=== PATIENT | male | born 1960 | race Caucasian/White ===

== ENCOUNTER 2020-06-03 10:50 | Outpatient (CLI) | payer OTHER, SELFPAY ==
[2020-06-03 11:56] LABS: Alanine Aminotransferase 50 U/L (4-50); Albumin Level 4.4 g/dL (3.5-5.1); Alkaline Phosphatase 75 U/L (38-126); Anion Gap 8 mmol/L (8-16); Aspartate Amino Transferase 43 U/L (17-59); Bilirubin,Total 0.8 mg/dL (0.2-1.3); Blood Urea Nitrogen 10 mg/dL (9-20); Calcium 9.5 mg/dL (8.4-10.2); Carbon Dioxide 29 mmol/L (22-30); Chloride 98 mmol/L (98-107); Cholesterol 214 mg/dL (0-200); Estimated Glomerular Filt Rate > 60; Glucose 120 mg/dL (75-110); HDL Direct 60 mg/dL; Potassium 4.1 mmol/L (3.4-5.0); Sodium 135 mmol/L (137-145); Triglycerides 138 mg/dL (<150)
[2020-06-03 12:09] LABS: LDL Cholesterol Direct 139 mg/dL
[2020-06-03 12:37] LABS: Free T4 Free Thyroxine 0.69 ng/mL (0.78-2.19)
== END 2020-06-03 10:51 | disposition home or self-care (01) ==
LOC: ANHLAB 10:53
PROVIDERS: PCP Internal Medicine; Visit Provider Nurse Practitioner
DX: E78.2 Mixed hyperlipidemia (principal); I10 Essential (primary) hypertension; Z79.899 Other long term (current) drug therapy; Z12.5 Encounter for screening for malignant neoplasm of prostate
CPT/HCPCS: 36415; 80053; 80061; 84153; 84439; 84443

== ENCOUNTER 2020-08-24 02:05 | Outpatient (CLI) | payer OTHER, SELFPAY ==
[2020-08-24 20:09] LABS: SARS-CoV-2 RNA PCR Negative
== END 2020-08-24 02:06 | disposition home or self-care (01) ==
LOC: ANHCOVIDDT 02:06
PROVIDERS: PCP Internal Medicine; Visit Provider Surgery
DX: Z01.812 Encounter for preprocedural laboratory examination (principal); Z20.822 Contact with and (suspected) exposure to COVID-19
CPT/HCPCS: C9803; U0003

== ENCOUNTER 2020-08-26 15:19 | Outpatient (CLI) | payer OTHER, SELFPAY ==
--- NOTE | 2020-08-26 15:20 | ECG_ITS ---
Measurements Intervals [place] Rate: 90 P: 51 [place]: 144 QRS: 17 QRSD: 100 T: 42 QT: 364 QTc: 447 Interpretive Statements SINUS RHYTHM POSSIBLE LEFT ATRIAL ENLARGEMENT INCOMPLETE RIGHT BUNDLE BRANCH BLOCK BASELINE ARTIFACT- V4 BORDERLINE ECG Electronically Signed On 08-26-2020 15:52:39 [employer] by Pollo Horton D.O.
== END 2020-08-26 15:20 | disposition home or self-care (01) ==
PROVIDERS: PCP Internal Medicine; Visit Provider Surgery
DX: Z01.818 Encounter for other preprocedural examination (principal); I10 Essential (primary) hypertension
CPT/HCPCS: 93005

== ENCOUNTER 2020-08-28 01:43 | Day surgery (SDC) | payer OTHER, SELFPAY ==
[2020-08-21 13:09] VITALS: BMI 28.6
--- NOTE | 2020-08-27 10:13 | WPDANESEPPF ---
Anes - Initial Pre Proc Eval Procedure: Operation Date: 08/28/20 12:00 Proposed Procedures p Excision Subcutaneous Mass Posterior Right Upper Arm - Lamont Guzman MD Date/Time: 08/27/20 10:13 Surgeon: Lamont Guzman MD Pre Op Diagnosis: Epidermal Cyst Patient Data Age: 60 Gender: M Height: 1.85 m Weight: 98.6 kg Allergies Allergy/AdvReac Type Severity Reaction Status Date / Time No Known Allergies Allergy Verified 08/28/20 10:04 Home Medications Medication Instructions Recorded Confirmed Type adalimumab 40 mg/0.8 mL 40 mg SUB-Q .COMPLEX 08/18/19 08/28/20 History subcutaneous syringe kit triamterene 37.5 See Rx Instructions .ROUTE 08/07/20 08/28/20 Rx mg-hydrochlorothiazide 25 mg .COMPLEX #90 cap capsule amlodipine 10 mg tablet 10 mg PO DAILY #90 tablet 08/08/20 08/28/20 Rx losartan 100 mg tablet 100 mg PO DAILY #90 tablet 08/08/20 08/28/20 Rx Patient hx anesthesia problems: none Family hx anesthesia problems: none PMFSH Past Medical History Medical History BPH NOS w/o ur obs/LUTS Colitis Essential (primary) hypertension Hypertension Migraine Mixed hyperlipidemia Mononeuritis leg Rheumatoid arthritis Surgical History Surgical History H/O colonoscopy History of appendectomy History of thumb surgery Family History Family History Father Hypertension Acute myocardial infarction, Onset Age: 67 Patient's father is Mother Family history of rheumatoid arthritis Family history of arthritis Sibling Patient's sister is in good health Patient's brother is in good health Grandparent Diabetes mellitus Lung cancer Social History Social History (Updated 08/28/20 @ 10:30 by Josr Chamberlain DO) Smoking packs per day: 0.75 Smoking cigarettes per day: 15.0 Years smoked: 5 Smoking pack-years: 3.75 Smoking status: Current every day smoker Tobacco type: cigarettes Smoking end date: 08/23/89 Alcohol intake: current Alcohol use details: 3-4 beers/daily Living arrangements: with family 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 care concerns: No Anes - Eval Final PreProcedure Day of Procedure 08/27/20 10:13 Patient weight: overweight Heart: regular rate and rhythm Lungs: clear to auscultation and normal air movement Airway: Mallampati scale class II Neurological: alert and oriented Last oral intake: >/= 8 hours ASA classification: III Emergent: no Anesthetic plan: proceed Anesthesia type and monitoring: general GIVS and standard monitoring Informed Consent: The patient's anesthetic plan and its attendant risks and benefits were discussed with the patient/family/POA. Questions were solicited and answers provided to the satisfaction of the patient/family/POA.
[2020-08-28] MEDS: LACTATED RINGERS 1,000 ML 30 ML IV CONT (10:34)
[2020-08-28 10:56] VITALS: BP 125/72; PULSE 98; RESP 16; TEMP 36.4; O2SAT 98
--- NOTE | 2020-08-28 11:44 | WPDHPUPDATE1 ---
History and Physical Update Update Date/Time: 08/28/20 11:44 History and Physical has been reviewed, including an updated exam of the patient. There are NO changes in the patient's condition. Risks, benefits, and alternatives have been discussed and questions answered. Patient agrees to proceed with procedure.
[2020-08-28] MEDS: LIDO 2%/EPINEPHRINE 1:100,000 20 ML VIAL 14 ML INFILTRATE (12:26)
--- NOTE | 2020-08-28 12:57 | PM.PROC ---
Procedure Note - Detailed Date of procedure: 08/30/20 Pre-op diagnosis: Enlarging subcutaneous mass Rt.upper posterior arm Post-op diagnosis: same Procedure performed: Excision of subcutaneous mass lesion right posterior upper arm Description of procedure: The patient was placed in the supine position and then a bump placed under his back so he was rolled somewhat toward the left. After a surgical time out confirming patient and procedure the patient was prepped and draped in the usual sterile fashion. Local anesthetic was administered subcutaneously in the propsed area of incision and then further out around the lesin in the subcutaneous tissue. An elliptical incision was made purposely excising sone of the skin overlying the center of the the lesion which was subcutaneous but pushing up the skin a little bit in 2 areas. I then completed the excision by taking a thin margin circumferentially. I dissected down to the deep subcutaneous tissues and then completely excised the lesion. While doing this we did enter the cyst and there was some whitish mucoid material that came out of the cyst. This was suctioned away immediately. Bleeding was controlled with electrocautery. Prior to wound closure we irrigated the wound after removing the apparent epidermal CIS and measuring the specimen. Irrigation was completed with approximately 40 cc of sterile saline. The lesion measured 4.0 x 2.0 x 1.8 cm after excision. Wound appeared very clean and we therefore proceeded to closure. The wound was closed in two layers. First with purple dyed 2-0 Vicryl deep dermal simple sutures at 3 separate sites along the incision and then several interrupted sutures of un-dyed 3-0 Vicryl at each end and between the other sutures to approximate the skin edges. A 4-0 undyed Monocryl running subcuticular closure was completed. Surgical glue applied as dressing. Patient tolerated this well. Implants: none Anesthesia: local (2% xylocaine with epinephrine) Surgeon: Lamont Guzman MD Estimated blood loss (mL): 2 Drains: No Complications: No immediate complications Condition: stable Disposition: same day Findings: Two apparently adjacent epidermal cysts in the subcutaneous tissues of the right posterior upper arm.
[2020-08-28 13:01] VITALS: BP 111/76; PULSE 73; RESP 14
[2020-08-28 13:30] VITALS: BP 98/74; PULSE 63; RESP 14
[2020-08-28 13:46] VITALS: BP 97/67; PULSE 61; RESP 16
== END 2020-08-28 14:20 | disposition home or self-care (01) ==
PROVIDERS: PCP Internal Medicine; Visit Provider Surgery
PROC: (CPT 23071; principal; 2020-08-28 12:00)
DX: L72.0 Epidermal cyst (principal); N40.0 Benign prostatic hyperplasia without lower urinary tract symptoms; I10 Essential (primary) hypertension; M06.9 Rheumatoid arthritis, unspecified; E78.2 Mixed hyperlipidemia; F17.210 Nicotine dependence, cigarettes, uncomplicated
CPT/HCPCS: 23071; 88304; 93005; C9803; J2250; J2370; J2704; J3010; J7120; U0003

== ENCOUNTER 2020-11-22 08:49 | Outpatient (CLI) | payer OTHER, SELFPAY ==
[2020-11-22 09:16] LABS: Alanine Aminotransferase 63 U/L (4-50); Albumin Level 4.5 g/dL (3.5-5.1); Alkaline Phosphatase 77 U/L (38-126); Anion Gap 11 mmol/L (8-16); Aspartate Amino Transferase 50 U/L (17-59); Bilirubin,Total 0.4 mg/dL (0.2-1.3); Blood Urea Nitrogen 12 mg/dL (9-20); Calcium 9.2 mg/dL (8.4-10.2); Carbon Dioxide 25 mmol/L (22-30); Chloride 102 mmol/L (98-107); Cholesterol 196 mg/dL (0-200); Estimated Glomerular Filt Rate > 60; Glucose 108 mg/dL (75-110); HDL Direct 49 mg/dL; Hemoglobin A1C 5.1 % (<5.7); Potassium 3.9 mmol/L (3.4-5.0); Sodium 138 mmol/L (137-145); Triglycerides 204 mg/dL (<150)
[2020-11-22 09:27] LABS: LDL Cholesterol Direct 98 mg/dL
== END 2020-11-22 08:50 | disposition home or self-care (01) ==
PROVIDERS: PCP Internal Medicine; Visit Provider Nurse Practitioner
DX: E78.5 Hyperlipidemia, unspecified (principal); R73.9 Hyperglycemia, unspecified
CPT/HCPCS: 36415; 80053; 80061; 83036

== ENCOUNTER 2021-08-07 08:57 | Outpatient (CLI) | payer OTHER, SELFPAY ==
[2021-08-07 09:38] LABS: Alanine Aminotransferase 74 U/L (4-50); Albumin Level 4.5 g/dL (3.5-5.1); Alkaline Phosphatase 67 U/L (38-126); Anion Gap 9 mmol/L (8-16); Aspartate Amino Transferase 58 U/L (17-59); Bilirubin,Total 0.5 mg/dL (0.2-1.3); Blood Urea Nitrogen 9 mg/dL (9-20); Calcium 9.5 mg/dL (8.4-10.2); Carbon Dioxide 24 mmol/L (22-30); Chloride 101 mmol/L (98-107); Cholesterol 198 mg/dL (0-200); Estimated Glomerular Filt Rate > 60; Glucose 121 mg/dL (65-110); HDL Direct 42 mg/dL; Potassium 3.5 mmol/L (3.4-5.0); Sodium 134 mmol/L (137-145); Triglycerides 182 mg/dL (<150)
[2021-08-07 09:49] LABS: LDL Cholesterol Direct 126 mg/dL
[2021-08-07 10:07] LABS: Prostate Specific Antigen 1.4 ng/mL (< OR = 4.0)
== END 2021-08-07 08:58 | disposition home or self-care (01) ==
PROVIDERS: PCP Internal Medicine; Visit Provider Internal Medicine
DX: E78.2 Mixed hyperlipidemia (principal); I10 Essential (primary) hypertension; Z12.5 Encounter for screening for malignant neoplasm of prostate; E78.5 Hyperlipidemia, unspecified
CPT/HCPCS: 36415; 80053; 80061; 84153; G0103

== ENCOUNTER 2022-02-16 09:09 | Outpatient (CLI) | payer OTHER, SELFPAY ==
[2022-02-16 09:43] LABS: Alanine Aminotransferase 85 U/L (6-50); Albumin Level 4.6 g/dL (3.5-5.1); Alkaline Phosphatase 70 U/L (38-126); Anion Gap 8 mmol/L (8-16); Aspartate Amino Transferase 67 U/L (17-59); Bilirubin,Total 0.6 mg/dL (0.2-1.3); Blood Urea Nitrogen 13 mg/dL (9-20); Calcium 9.2 mg/dL (8.4-10.2); Carbon Dioxide 27 mmol/L (22-30); Chloride 102 mmol/L (98-107); Cholesterol 187 mg/dL (0-200); Estimated Glomerular Filt Rate > 60; Glucose 110 mg/dL (65-110); HDL Direct 40 mg/dL; Potassium 3.9 mmol/L (3.4-5.0); Sodium 137 mmol/L (137-145); Triglycerides 115 mg/dL (<150)
[2022-02-16 09:48] LABS: Hemoglobin A1C 5.9 % (<5.7)
[2022-02-16 09:54] LABS: LDL Cholesterol Direct 112 mg/dL
== END 2022-02-16 09:10 | disposition home or self-care (01) ==
LOC: ANHLAB 09:11
PROVIDERS: PCP Internal Medicine; Visit Provider Internal Medicine
DX: E78.5 Hyperlipidemia, unspecified (principal); R73.9 Hyperglycemia, unspecified; I10 Essential (primary) hypertension; Z79.899 Other long term (current) drug therapy
CPT/HCPCS: 36415; 80053; 80061; 83036

== ENCOUNTER 2022-03-12 09:03 | Outpatient (CLI) | payer OTHER, SELFPAY ==
--- NOTE | ~2022-03-12 | US_ITS ---
US abdomen limited INDICATION: Abnormal lab studies. PROCEDURE: Realtime right upper abdominal ultrasound. COMPARISON: No prior studies for comparison. FINDINGS: The pancreas is normal without focal mass or pancreatic ductal dilation. There are multipl e liver cysts, largest measuring 4.5 cm. No solid liver masses. There is normal directional flow in the portal vein. The gallbladder is normal without stones, gallbladder wall thickening or pericholecystic fluid. Comm on bile duct measures 5 mm. No sonographic Drake's sign. IMPRESSION: 1: Liver cysts. Reviewed, dictated and finalized at location [facility]. IMPRESSION: 1: Liver cysts.
== END 2022-03-12 09:04 | disposition home or self-care (01) ==
PROVIDERS: PCP Internal Medicine; Visit Provider Nurse Practitioner
DX: R79.89 Other specified abnormal findings of blood chemistry (principal); K76.89 Other specified diseases of liver
CPT/HCPCS: 76705

== ENCOUNTER 2022-08-28 08:49 | Outpatient (CLI) | payer BC, SELFPAY ==
[2022-08-28 09:47] LABS: Alanine Aminotransferase 187 U/L (6-50); Albumin Level 4.4 g/dL (3.5-5.1); Alkaline Phosphatase 58 U/L (38-126); Anion Gap 9 mmol/L (8-16); Aspartate Amino Transferase 101 U/L (17-59); Bilirubin,Total 0.5 mg/dL (0.2-1.3); Blood Urea Nitrogen 19 mg/dL (9-20); Calcium 9.2 mg/dL (8.4-10.2); Carbon Dioxide 28 mmol/L (22-30); Chloride 103 mmol/L (98-107); Cholesterol 204 mg/dL (0-200); Estimated Glomerular Filt Rate > 60; Glucose 120 mg/dL (65-110); HDL Direct 40 mg/dL; Potassium 4.2 mmol/L (3.4-5.0); Sodium 140 mmol/L (137-145); Triglycerides 194 mg/dL (<150)
[2022-08-28 09:58] LABS: Hemoglobin A1C 5.7 % (<5.7); LDL Cholesterol Direct 120 mg/dL
== END 2022-08-28 08:50 | disposition home or self-care (01) ==
PROVIDERS: PCP Internal Medicine; Visit Provider Nurse Practitioner
DX: R73.03 Prediabetes (principal); E78.5 Hyperlipidemia, unspecified; Z79.899 Other long term (current) drug therapy
CPT/HCPCS: 36415; 80053; 80061; 83036

== ENCOUNTER 2022-09-09 10:46 | Outpatient (CLI) | payer BC, SELFPAY ==
[2022-09-09 12:27] LABS: Hepatitis B Surface Antigen Negative (Negative)
[2022-09-09 12:33] LABS: HAV RESULT Negative (Negative); Hepatitis B Core IgM Result Negative (Negative)
[2022-09-09 12:45] LABS: Hepatitis C Virus Antibody Negative (Negative)
== END 2022-09-09 10:47 | disposition home or self-care (01) ==
LOC: ANHLAB 10:46
PROVIDERS: PCP Internal Medicine; Visit Provider Nurse Practitioner
DX: R79.89 Other specified abnormal findings of blood chemistry (principal)
CPT/HCPCS: 36415; 80074

== ENCOUNTER 2022-09-23 10:53 | Outpatient (CLI) | payer BC, SELFPAY ==
[2022-09-23 11:56] LABS: Alanine Aminotransferase 123 U/L (6-50); Alkaline Phosphatase 68 U/L (38-126); Aspartate Amino Transferase 73 U/L (17-59); Bilirubin,Total 0.8 mg/dL (0.2-1.3); Iron 144 ug/dL (49-181)
[2022-09-23 12:05] LABS: Percent Iron Saturation 38 % (20-50)
[2022-09-23 12:17] LABS: INR 1.1; Prothrombin Time 13.4 Seconds (11.1-14.7)
[2022-09-23 15:34] LABS: Hepatitis B Surface Anti Res Indeterminate
[2022-09-26 10:24] LABS: Mitochondrial (M2) Ab (IgG) <=20.0 U (<=20.0)
[2022-09-26 14:14] LABS: GGT 66 U/L (3-70)
[2022-09-26 21:01] LABS: Actin Antibody (IgG) <20 U (<20)
[2022-09-27 13:24] LABS: LKM 1 Antibody <=20.0 U (<=20.0)
[2022-09-28 11:29] LABS: Hepatitis A Antibody Total Reactive (Nonreactive)
[2022-09-28 11:40] LABS: Anti Nuclear Antibody Pattern Nuclear, Speckled
[2022-09-28 14:58] LABS: Ceruloplasmin 28 mg/dL (18-36)
[2022-09-28 17:51] LABS: Alpha Fetoprotein Tumor Marker 3.9 ng/mL (<6.1)
[2022-09-29 18:06] LABS: ALT 93 U/L (9-46); Alpha-2-Macroglobulin 265 mg/dL (106-279); Apolipoprotein A1 131 mg/dL (94-176); Fibrosis Score 0.48; Fibrosis Stage F1-F2; GGT 71 U/L (3-70); Haptoglobin 203 mg/dL (43-212); Necroinflammat Act Grade A2-A3; Total Bilirubin 0.5 mg/dL (0.2-1.2)
== END 2022-09-23 10:54 | disposition home or self-care (01) ==
PROVIDERS: PCP Internal Medicine; Visit Provider Nurse Practitioner Family
DX: R79.89 Other specified abnormal findings of blood chemistry (principal)
CPT/HCPCS: 36415; 80076; 81596; 82105; 82390; 82728; 82977; 83516; 83520; 83540; 83550; 85610; 86038; 86039; 86376; 86706; 86708

== ENCOUNTER 2022-10-19 07:59 | Outpatient (CLI) | payer BC, SELFPAY ==
--- NOTE | ~2022-10-19 | US_ITS ---
Limited Abdominal Sonogram: Real-time sonographic imaging of the right upper quadrant was performed. Clinical History: Abnormal blood chemistry Findings: The liver appears normal with no evidence of solid mass lesion or bile duct dilatation. Mu ltiple hepatic lobe cysts are present, largest measuring 4.3 cm in diameter in the left hepatic lobe. Main portal vein demonstrates normal direction of flow. The gallbladder is well distended, and appea rs normal with no evidence of gallstone or wall thickening. The common bile duct measures 3 mm. The visualized pancreas, aorta, and IVC are unremarkable. Impression: Multiple hepatic cysts, as noted above. Reviewed, dictated and finalized at [facility]. [employer] Impression: Multiple hepatic cysts, as noted above.
== END 2022-10-19 08:00 | disposition home or self-care (01) ==
PROVIDERS: PCP Internal Medicine; Visit Provider Nurse Practitioner Family
DX: R79.89 Other specified abnormal findings of blood chemistry (principal); K76.89 Other specified diseases of liver
CPT/HCPCS: 76705

== ENCOUNTER 2023-04-23 08:36 | Outpatient (CLI) | payer BC, SELFPAY ==
[2023-04-23 09:42] LABS: Hematocrit 44.9 % (42.0-52.0); Hemoglobin 15.4 g/dL (14.0-18.0); Mean Corpuscular HGB Conc 34.3 g/dl (32-36); Mean Corpuscular Hemoglobin 33.6 pg (26-34); Mean Platelet Volume 9.4 fl (7.4-10.4); Platelet Count Result 257 k/mm3 (150-375); Red Blood Count 4.58 M/mm3 (4.6-6.20); Red Cell Distribution Width 12.7 % (11.5-14.5); White Blood Count 7.2 K/mm3 (4.5-10.0)
[2023-04-23 09:53] LABS: Prothrombin Time 13.7 Seconds (11.1-14.7)
[2023-04-23 09:54] LABS: Alanine Aminotransferase 30 U/L (6-50); Albumin Level 4.3 g/dL (3.5-5.1); Alkaline Phosphatase 53 U/L (38-126); Anion Gap 8 mmol/L (8-16); Aspartate Amino Transferase 28 U/L (17-59); Bilirubin,Total 0.8 mg/dL (0.2-1.3); Blood Urea Nitrogen 11 mg/dL (9-20); Calcium 9.3 mg/dL (8.4-10.2); Carbon Dioxide 31 mmol/L (22-30); Chloride 97 mmol/L (98-107); Estimated Glomerular Filt Rate > 60; Glucose 131 mg/dL (65-110); Potassium 3.7 mmol/L (3.4-5.0); Sodium 136 mmol/L (137-145)
[2023-04-23 09:56] LABS: Cholesterol 194 mg/dL (0-200); HDL Direct 36 mg/dL; Triglycerides 159 mg/dL (<150)
[2023-04-23 10:08] LABS: LDL Cholesterol Direct 118 mg/dL
[2023-04-23 10:27] LABS: Prostate Specific Antigen 0.6 ng/mL (< OR = 4.0)
== END 2023-04-23 08:37 | disposition home or self-care (01) ==
PROVIDERS: PCP Nurse Practitioner; Referring Provider Nurse Practitioner Family; Visit Provider Nurse Practitioner
DX: R79.89 Other specified abnormal findings of blood chemistry (principal); Z12.5 Encounter for screening for malignant neoplasm of prostate; E78.5 Hyperlipidemia, unspecified
CPT/HCPCS: 36415; 80053; 80061; 84153; 85027; 85610; G0103

== ENCOUNTER 2023-08-13 01:51 | Day surgery (SDC) | payer BC, SELFPAY ==
[2023-07-27 13:56] VITALS: BMI 29.6
--- NOTE | 2023-08-11 08:43 | SUR.PREOP ---
Patient called regarding upcoming procedure. Reviewed preop instructions, appointment times, and procedure prep.
--- NOTE | 2023-08-12 09:31 | WPDANESEPPF ---
Anes - Initial Pre Proc Eval Procedure: Operation Date: 08/13/23 08:00 Proposed Procedures p Screening Colonoscopy - Octavio Sampson MD Date/Time: 08/12/23 09:31 Surgeon: Octavio Sampson MD Pre Op Diagnosis: neoplasm screening Patient Data Age: 63 Gender: M Height: 1.85 m Weight: 102 kg Allergies Allergy/AdvReac Type Severity Reaction Status Date / Time No Known Allergies Allergy Verified 08/13/23 06:40 Home Medications Medication Instructions Recorded Confirmed Type adalimumab 40 mg/0.8 mL 40 mg subcut .COMPLEX 08/18/19 07/27/23 History subcutaneous syringe kit (Humira) amlodipine 10 mg tablet 10 mg PO DAILY #90 tabs 08/09/23 08/13/23 Rx losartan 100 mg tablet 100 mg PO DAILY #90 tabs 08/09/23 08/13/23 Rx triamterene 37.5 See Rx Instructions .Route 08/09/23 08/13/23 Rx mg-hydrochlorothiazide 25 mg .COMPLEX #90 caps capsule Patient hx anesthesia problems: none Family hx anesthesia problems: none Results Review: All pre-operative results and documents have been reviewed as part of the pre-operative evaluation. [facility] Past Medical History Medical History (Updated 08/12/23 @ 09:31 by Josr Chamberlain DO) BPH NOS w/o ur obs/LUTS Colitis Encounter for screening colonoscopy Hepatic cyst Hypertension Migraine Mononeuritis leg Rheumatoid arthritis Seizure none since teenager Surgical History Surgical History H/O colonoscopy History of appendectomy History of thumb surgery Mass of right upper extremity Family History Family History Father Hypertension Acute myocardial infarction, Onset Age: 67 Patient's father is Mother Family history of rheumatoid arthritis Family history of arthritis Sibling Patient's sister is in good health Patient's brother is in good health Grandparent Diabetes mellitus Lung cancer Social History Social History Smoking packs per day: 0.1 Smoking cigarettes per day: 2.0 Years smoked: 10 Smoking pack-years: 1.00 Smoking status: Former smoker Tobacco type: cigarettes and e-cigarettes/vaping Smoking end date: 08/23/89 Additional smoking assessment comments: Vaping Alcohol intake: current Drinks per week: 3 Substance use: never Substance use type: does not use Lack of Transportation: No Lack of Food: Never True Current Housing: I Have Housing Concerned About Future Housing: No Difficulty Paying Gas/Electric Bills: No Difficulty Paying for Meds: No Currently Unemployed: No Education: Master's Degree or Higher Difficulty w/ Childcare or Family Care: No Living arrangements: with family Occupation/Education: 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 Informed Consent: The patient's anesthetic plan and its attendant risks and benefits were discussed with the patient/family/POA. Questions were solicited and answers provided to the satisfaction of the patient/family/POA.
[2023-08-13 06:42] VITALS: BP 126/83; PULSE 87; RESP 16; TEMP 36.3; O2SAT 98
[2023-08-13] MEDS: LACTATED RINGERS 1,000 ML 150 ML IV CONT (06:51)
--- NOTE | 2023-08-13 07:13 | PM.HPGS ---
History of Present Illness History of Present Illness Consent: Risks, benefits, and alternatives have been discussed and questions answered. Patient agrees to proceed with procedure. Chief complaint: neoplasm screening Narrative: Bhupendra Jones is a 63 year old male Presents for screening colonoscopy. Patient's current weight appetite and bowel movements are normal. Patient denies abdominal pain. He has had no bleeding. Family history noncontributory. He does report that his had colon cancer and recovered after surgery. Previous colonoscopy this patient had 10 years ago was unremarkable. Review of Systems Review of Systems: Review of systems noncontributory. [facility] Past Medical History Medical History (Updated 08/12/23 @ 09:31 by Josr Chamberlain, ) BPH NOS w/o ur obs/LUTS Colitis Encounter for screening colonoscopy Hepatic cyst Hypertension Migraine Mononeuritis leg Rheumatoid arthritis Seizure none since teenager Surgical History Surgical History H/O colonoscopy History of appendectomy History of thumb surgery Mass of right upper extremity Family History Family History Father Hypertension Acute myocardial infarction, Onset Age: 67 Patient's father is Mother Family history of rheumatoid arthritis Family history of arthritis Sibling Patient's sister is in good health Patient's brother is in good health Grandparent Diabetes mellitus Lung cancer Social History Social History Smoking packs per day: 0.1 Smoking cigarettes per day: 2.0 Years smoked: 10 Smoking pack-years: 1.00 Smoking status: Former smoker Tobacco type: cigarettes and e-cigarettes/vaping Smoking end date: 08/23/89 Additional smoking assessment comments: Vaping Alcohol intake: current Drinks per week: 3 Substance use: never Substance use type: does not use Lack of Transportation: No Lack of Food: Never True Current Housing: I Have Housing Concerned About Future Housing: No Difficulty Paying Gas/Electric Bills: No Difficulty Paying for Meds: No Currently Unemployed: No Education: Master's Degree or Higher Difficulty w/ Childcare or Family Care: No Living arrangements: with family Occupation/Education: occupation 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 care concerns: No Meds Home Medications and Allergies Home Medications Medication Instructions Recorded Confirmed Type adalimumab 40 mg/0.8 mL 40 mg subcut .COMPLEX 08/18/19 07/27/23 History subcutaneous syringe kit (Humira) amlodipine 10 mg tablet 10 mg PO DAILY #90 tabs 08/09/23 08/13/23 Rx losartan 100 mg tablet 100 mg PO DAILY #90 tabs 08/09/23 08/13/23 Rx triamterene 37.5 See Rx Instructions .Route 08/09/23 08/13/23 Rx mg-hydrochlorothiazide 25 mg .COMPLEX #90 caps capsule Allergies Allergy/AdvReac Type Severity Reaction Status Date / Time No Known Allergies Allergy Verified 08/13/23 06:40 Vital Signs Vital Signs - 24 hr 08/13/23 06:42 Temperature 97.4 F L Pulse Rate 87 Respiratory Rate 16 Blood Pressure 126/83 Pulse Oximetry 98 Oxygen Delivery Room Air Exam Narrative: Physical exam reveals patient to be alert. Vital signs stable. HEENT exam is unremarkable. Patient is anicteric. Lungs are clear to auscultation and percussion. Heart is without murmur or extra sounds. Abdomen bowel sounds are present soft nontender with no organomegaly. Digital external rectal exam normal. Assessment and Plan Assessment and plan (1) Encounter for screening colonoscopy: Code(s): Z12.11 - Encounter for screening for malignant neoplasm of colon Status: Acute Assessment and Plan: Patient presents today for screening colonoscopy. He appears to be a
[2023-08-13 08:05] VITALS: BP 132/83; PULSE 75; RESP 16; O2SAT 96
[2023-08-13 08:15] VITALS: BP 121/89; PULSE 74; RESP 19; O2SAT 100
[2023-08-13 08:25] VITALS: BP 125/88; PULSE 69; RESP 17; O2SAT 100
== END 2023-08-13 08:34 | disposition home or self-care (01) ==
PROVIDERS: PCP Nurse Practitioner; Visit Provider Internal Medicine Gastroenterology
PROC: 0DJD8ZZ Inspection of Lower Intestinal Tract, Via Natural or Artificial Opening Endoscopic (ICD-10-PCS; CPT 45378; principal; 2023-08-13 08:00)
DX: Z12.11 Encounter for screening for malignant neoplasm of colon (principal); K64.8 Other hemorrhoids; K57.30 Diverticulosis of large intestine without perforation or abscess without bleeding; I10 Essential (primary) hypertension; M06.9 Rheumatoid arthritis, unspecified; F17.290 Nicotine dependence, other tobacco product, uncomplicated; Z79.620 Long term (current) use of immunosuppressive biologic
CPT/HCPCS: 45378; J2704; J7120

== ENCOUNTER 2024-05-15 08:39 | Outpatient (CLI) | payer BC, SELFPAY ==
[2024-05-15 08:53] LABS: Hematocrit 45.3 % (42.0-52.0); Hemoglobin 16.1 g/dL (14.0-18.0); Mean Corpuscular HGB Conc 35.5 g/dl (32-36); Mean Corpuscular Hemoglobin 35.6 pg (26-34); Mean Corpuscular Volume 100.2 fl (80-100); Mean Platelet Volume 9.2 fl (7.4-10.4); Platelet Count Result 263 k/mm3 (150-375); Red Blood Count 4.52 M/mm3 (4.6-6.20); Red Cell Distribution Width 12.3 % (11.5-14.5); White Blood Count 6.5 K/mm3 (4.5-10.0)
[2024-05-15 09:07] LABS: Alanine Aminotransferase 82 U/L (6-50); Albumin Level 4.7 g/dL (3.5-5.1); Alkaline Phosphatase 39 U/L (38-126); Anion Gap 10 mmol/L (4-12); Aspartate Amino Transferase 59 U/L (17-59); Blood Urea Nitrogen 17 mg/dL (9-20); Calcium 9.4 mg/dL (8.4-10.2); Carbon Dioxide 28 mmol/L (22-30); Chloride 95 mmol/L (98-107); Cholesterol 175 mg/dL (0-200); Estimated Glomerular Filt Rate > 60; Glucose 113 mg/dL (65-110); HDL Direct 29 mg/dL; Potassium 3.8 mmol/L (3.4-5.0); Sodium 133 mmol/L (137-145); Triglycerides 130 mg/dL (<150)
[2024-05-15 09:15] LABS: Hemoglobin A1C 5.8 % (<5.7); LDL Cholesterol Direct 117 mg/dL
[2024-05-15 09:35] LABS: Prostate Specific Antigen 0.7 ng/mL (< OR = 4.0)
== END 2024-05-15 08:40 | disposition home or self-care (01) ==
PROVIDERS: PCP Nurse Practitioner; Visit Provider Nurse Practitioner
DX: Z12.5 Encounter for screening for malignant neoplasm of prostate (principal); E78.5 Hyperlipidemia, unspecified; R73.03 Prediabetes; I10 Essential (primary) hypertension; Z79.899 Other long term (current) drug therapy
CPT/HCPCS: 36415; 80053; 80061; 83036; 84153; 84443; 85027; G0103

== ENCOUNTER 2025-03-15 08:45 | Outpatient (RCR) | payer BC, SELFPAY ==
--- NOTE | 2025-01-25 17:46 | OPREHPOC ---
Outpatient Therapy Plan of Care This is a Multidisciplinary Plan of Care that may contain components documented by all disciplines (PT, OT, and ST.) PT Problem 1 PT Problem #1 Knowledge Deficit PT Goal 1 Goal / Goal Update [place] with HEP Target Visit 4 PT Goal 2 Goal / Goal Update Patient will report no shoulder pain greater than 2/10 for 2 consecutive weeks Target Visit 8 PT Problem 2 PT Problem #2 Impaired Range of Motion PT Goal 1 Goal / Goal Update 1. Patient will improve R shoulder flexion to 170 degrees to improve lifting ability and self care 2. Improve R shoulder external rotation to 85 degrees to improve self care and reachign behind back Target Visit 8 PT Problem 3 PT Problem #3 Impaired Strength PT Goal 1 Goal / Goal Update 1. Improve gross Right shoulder strength to 5/5 to improve lifting ability and gross shoulder stability for ADL performance Target Visit 8
--- NOTE | 2025-01-25 17:49 | PTOPEVAL1 ---
Assessment and note entered by Kiet Angeles, PT Evaluation Information Assessment Status Evaluation ICD-10 Condition Codes (PT) Pain in right shoulder M25.511 Onset 1 year ago Subjective Information Reports that he is having a lot of trouble raising his arm at this point. He has been having trouble sleeping up until the past couple of weeks. Has a catching feeling in the shoulder when lifting over his head and getting radiating pain into the elbow and the neck. No pain past the elbow. Patient is right handed. Has increased pain with reaching away from his body. Reported Pain Level Pain Score 5: Self Report Assessment PT Clinical Summary Patient presents with shoulder ROM deficits and weakness with shoulder activity requiring elevation of shoulder girdle. Pain with multidirectional motion. Patient will benefit forms killed therapy to address mobility deficits to assess capsular restriction vs structural restriction with progression to strengthening as tolerated. Plan of Care Interventions Electrical Stimulation,Hot Pack/Cold Pack,Manual Therapy,Neuro Re-education,Therapeutic Activities, Therapeutic Exercise PT Services Indicated Yes Treatment Frequency and 2x/week for 8 visits Duration These treatments will address the objective and functional deficits as defined above. The patient will be advanced safely and appropriately in order for the patient to progress towards his/her prior level of function. Additional exercises will be introduced and as well as a comprehensive home exercise program upon discharge, if needed, ?to ensure carryover of functional gains achieved in the clinic. This treatment plan has been reviewed and agreement upon by the patient.
--- NOTE | 2025-03-15 09:21 | OPREHPOC ---
Outpatient Therapy Plan of Care This is a Multidisciplinary Plan of Care that may contain components documented by all disciplines (PT, OT, and ST.) PT Problem 1 PT Problem #1 Knowledge Deficit PT Goal 1 Goal / Goal Update [place] with HEP Target Visit 4 Progress Met PT Goal 2 Goal / Goal Update Patient will report no shoulder pain greater than 2/10 for 2 consecutive weeks Target Visit 8 Progress Met PT Problem 2 PT Problem #2 Impaired Range of Motion PT Goal 1 Goal / Goal Update 1. Patient will improve R shoulder flexion to 170 degrees to improve lifting ability and self care 2. Improve R shoulder external rotation to 85 degrees to improve self care and reachign behind back Target Visit 8 Progress Met PT Problem 3 PT Problem #3 Impaired Strength PT Goal 1 Goal / Goal Update 1. Improve gross Right shoulder strength to 5/5 to improve lifting ability and gross shoulder stability for ADL performance Target Visit 8 Progress Partially Met
--- NOTE | 2025-03-15 09:21 | PTOPDC ---
Assessment and note entered by Kiet Angeles, PT Evaluation Information Assessment Status Discharge ICD-10 Condition Codes (PT) Pain in right shoulder M25.511 Onset 1 year ago Subjective Information Patient feeling much improvement in both pain and motion of shoulder. No concerns at this time and feel she has a handle on self recovery moving forward. Reported Pain Level Pain Score 1: Self Report Assessment PT Clinical Summary Patient met all personal goals for therapy at this time. Continues to show some weakness in the shoulder which has improved and can be addressed through continuation of HEP. Patient suitable for discharge at this time. Plan of Care PT Services Indicated Yes
== END 2025-03-15 10:24 | disposition home or self-care (01) ==
LOC: ANHPT 08:45
PROVIDERS: PCP Nurse Practitioner
DX: M15.0 Primary generalized (osteo)arthritis (principal); M25.511 Pain in right shoulder; G89.29 Other chronic pain
CPT/HCPCS: 97014; 97035; 97110; 97140; 97161; G0283